=== PATIENT | male | born 1980 | race Caucasian/White ===

== ENCOUNTER → 2020-11-08 01:22 | Outpatient (CLI) | payer BC, SELFPAY ==
[2020-11-08 18:54] LABS: SARS-CoV-2 RNA PCR Negative
== END ==
PROVIDERS: PCP Family Medicine; Visit Provider Internal Medicine Critical Care Medicine
DX: R68.89 Other general symptoms and signs (principal); Z20.822 Contact with and (suspected) exposure to COVID-19
CPT/HCPCS: C9803; U0003; U0005

== ENCOUNTER 2020-11-11 09:07 | Outpatient (CLI) | payer BC, SELFPAY ==
--- NOTE | 2020-11-26 23:03 | WPDSLEEPSTUD ---
Sleep Study Ordering Provider: Kulwant Solorzano MD Interpreting Physician: Samantha Balderas MD Sleep Study Type: Split Polysomnogram Height: 1.96 m Weight: 132.243 kg Body Mass Index: 34.5 Neck Circumference (inches): 18 [place]: 5 Reason for Sleep Study Snoring, waking during the night, fatigue Sleep History [place] Naidu is a 40-year-old man who has fatigue. There is a family history of sleep disorders with both parents using CPAP. He occasionally snores and occasionally it is loud enough that others complain about it. He does not awaken at night with heartburn, belching or coughing. He does not awaken from sleep feeling short of breath. He rarely has trouble sleeping with a cold. He does not wake up gasping for breath at night. He does not have breathing problems at night observed by others. He rarely sweats excessively at night. He does not notice his heart pounding or beating irregularly at night. He rarely falls asleep during the day. Does not fall asleep involuntarily or while driving. He does not have loss of muscle tone was strong emotion. He does not have daytime difficulties due to excessive sleepiness. He does not feel paralyzed on waking or falling asleep. He does not have vivid dreamlike scenes upon awakening or falling asleep. He does not feel afraid to go to sleep. He does not have nightmares. He rarely remembers his dreams. He rarely has racing thoughts. He rarely feels sad or depressed. He occasionally feels anxiety. He rarely has muscular tension. He rarely notices parts of his body jerking. He does not kick at night. He rarely has crawling and aching feelings in his legs. He does not have any kind of leg pain at night. He does not have morning jaw pain. He rarely grinds his teeth during sleep. He does not awaken due to pain during the night. He rarely wakes up feeling stiff the morning. He occasionally wakes up with sore achy muscles. He rarely wakes up with pain in the neck and spine. Normal bedtime depends on his work schedule. He works swing shift. He does not usually take naps. A short nap may be refreshing. He falls asleep quickly waking once at night to urinate and then returns to sleep. He estimates getting 6 to 7-1/2 hours of sleep at night. Habits: Never smoker. Caffeine 2 servings a day. No alcohol. [facility] Past Medical History Medical History Anxiety Dyslipidemia 11/07/2018 Erectile dysfunction Hypertension Hypogonadism in male Surgical History Surgical History History of ligation of vein right leg 1987 Family History Family History Mother Diabetes mellitus Other Depression Hypertension Social History Social History Smoking status: Never smoker Second hand tobacco smoke exposure: No Alcohol intake: current Substance use: never Substance use type: does not use Gender identity (if verbalized by the patient): Male Medications Home Medications Medication Instructions Recorded Confirmed Type lisinopril 20 See Rx Instructions .ROUTE 04/07/20 10/20/20 Rx mg-hydrochlorothiazide 25 mg tablet .COMPLEX #90 tablet syringe with needle 3 mL 22 gauge #20 each 04/25/20 10/20/20 Rx x 1 hydroxyzine HCl 25 mg tablet 25 mg PO TID PRN #60 tablet 09/16/20 09/16/20 Rx testosterone cypionate 200 mg/mL 100 mg IM Q14D 90 Days #3.5 ml 10/27/20 10/27/20 Rx intramuscular oil nebivolol 10 mg tablet 10 mg PO DAILY #90 tablet 11/06/20 Rx sertraline 50 mg tablet 50 mg PO DAILY #90 tablet 11/06/20 Rx amlodipine 10 mg tablet See Rx Instructions .ROUTE 11/13/20 Rx .COMPLEX #90 tablet Sleep Procedure This test was performed using the Storactive multiple channel system including EOG, EEG, submental EMG, EKG, nasal and oral ai
[2020-11-26 23:08] VITALS: BMI 34.5
== END 2020-11-11 09:08 | disposition home or self-care (01) ==
LOC: ANHCSM 09:08
PROVIDERS: PCP Family Medicine; Visit Provider Family Medicine
DX: G47.33 Obstructive sleep apnea (adult) (pediatric) (principal); G47.10 Hypersomnia, unspecified; R29.818 Other symptoms and signs involving the nervous system; R53.83 Other fatigue
CPT/HCPCS: 95811

== ENCOUNTER → 2023-01-27 09:14 | Outpatient (CLI) | payer BC, SELFPAY ==
--- NOTE | ~2023-01-27 | MR_ITS ---
MRI of the right knee Clinical history: Lateral meniscal tear Technique: Coronal proton density and proton density-weighted images, sagittal proton-density and T2 fat-sat images, and axial proton-density fat-saturated images were acquired. Findings: Anterior and posterior cruciate ligaments are intact. Medial collateral ligament and the la teral collateral ligament complex are intact. Popliteus tendon is intact. There is prominent horizontal tear of the anterior horn of the lateral meniscus. No medial meniscal t ear identified. Articular cartilage is relatively well preserved throughout the knee. Bone marrow signals are unremar kable. Extensor mechanism is intact. There is minimal soft tissue swelling in the prepatellar region. No richard nt effusion or Vang's cyst. Impression: Horizontal tear of the anterior horn lateral meniscus. Suspected minimal developing prepatellar bursitis. Reviewed, dictated and finalized at [facility]. Impression: Horizontal tear of the anterior horn lateral meniscus. Suspected minimal developing prepatellar bursitis.
== END ==
PROVIDERS: PCP Family Medicine; Visit Provider Orthopaedic Surgery
DX: S83.281A Other tear of lateral meniscus, current injury, right knee, initial encounter (principal); X58.XXXA Exposure to other specified factors, initial encounter
CPT/HCPCS: 73721

== ENCOUNTER 2023-02-22 07:55 | Outpatient (CLI) | payer BC, SELFPAY ==
--- NOTE | 2023-02-22 08:00 | ECG_ITS ---
Measurements Intervals [place] Rate: 47 P: 5 WA: 153 QRS: -15 QRSD: 91 T: -12 QT: 458 QTc: 407 Interpretive Statements SINUS BRADYCARDIA NO PREVIOUS ECG AVAILABLE FOR COMPARISON Electronically Signed On 02-22-2023 13:31:32 CDT by Roberta Hinkle M.D.
[2023-02-22 08:35] LABS: Anion Gap 6 mmol/L (8-16); Blood Urea Nitrogen 21 mg/dL (9-20); Calcium 8.5 mg/dL (8.4-10.2); Carbon Dioxide 29 mmol/L (22-30); Chloride 103 mmol/L (98-107); Estimated Glomerular Filt Rate > 60; Glucose 97 mg/dL (65-110); Sodium 138 mmol/L (137-145)
== END 2023-02-22 07:56 | disposition home or self-care (01) ==
LOC: ANHSURGERY 08:00
PROVIDERS: Anesthesiology; PCP Family Medicine; Visit Provider Orthopaedic Surgery
DX: E11.9 Type 2 diabetes mellitus without complications (principal); Z01.818 Encounter for other preprocedural examination
CPT/HCPCS: 36415; 80048; 93005

== ENCOUNTER 2023-02-24 01:15 | Day surgery (SDC) | payer BC, SELFPAY ==
[2023-02-17 14:57] VITALS: BMI 34.4
--- NOTE | 2023-02-17 15:00 | PC.NURSE ---
Report to the Outpatient Waiting Room, entrance under the green pavilion located off [facility], at time 8:30 on date 02/24/23. Planned Procedure Time: 10:30. Time changes happen often and if your time is changed the preop area will call you the afternoon before. - You and your visitor will be asked to self-screen and do not enter if you have any COVID symptoms. - A mask is optional within the hospital at this time. Patients may have clear liquids (water, carbonated beverages, clear teas, apple juice) until 3 hours prior to surgery (7:30) with a maximum of 20 ounces. - No food from midnight until time of surgery Take the following medications with a SIP of water the morning of surgery: AMLODIPINE, BYSTOLIC, SERTRALINE DO NOT STOP ANY OF YOUR OTHER PRESCRIPTION MEDICATIONS PRIOR TO SURGERY?EXCEPT THE FOLLOWING Medications to discontinue per physician: VITAMINS/SUPPLEMENTS Date to take last dose: 02/20/23 Please no make-up, nail [place], hairspray, perfume, deodorant, or body powder the day of surgery. No jewelry (including any body piercings) or valuables the day of surgery, leave them at home. Please take a shower or bath the night before, or the morning of, surgery with an antibacterial soap. Wear comfortable, loose fitting clothing. - Jewelry must be removed prior to entering the operating room. Rings and piercings that are not removed may be cut off. - The hospital will not accept responsibility for valuables. - Please leave all valuables, including medications, at home the day of surgery. If you are going home after surgery, a licensed funeral car driver must drive you home. - NO public transportation without another adult if you receive anesthesia. - We recommend that an adult stay with you for 24 hours following discharge. - We also recommend that you do not drive, make important decision, drink alcoholic beverages, or take any drugs that were not prescribed by your health care provider for at least 24 hours after your discharge time. Follow any additional instructions given to you from your surgeon. If you or anyone in your household have experienced Covid symptoms in the past week, please notify your surgeon or the nurse liaison at the phone number below for possible testing. Telephone instructions given to PT - MAMIE ACEVEDO and asked if any additional questions and then verbalized understanding. Patient advised to call surgeon office or pre surgery nurse liaison [phone] if any additional questions.
[2023-02-24] VITALS (7 sets, daily range): BP systolic 144–155; BP diastolic 72–95; PULSE 47–56; RESP 14–21; TEMP 36.3–37.1; O2SAT 95–98
--- NOTE | 2023-02-24 07:01 | WPDHPUPDATE1 ---
History and Physical Update Update Date/Time: 02/24/23 07:01 History and Physical has been reviewed, including an updated exam of the patient. There are NO changes in the patient's condition. Risks, benefits, and alternatives have been discussed and questions answered. Patient agrees to proceed with procedure.
--- NOTE | 2023-02-24 08:29 | WPDANESEPPF ---
Anes - Initial Pre Proc Eval Procedure: Operation Date: 02/24/23 10:30 Proposed Procedures p Right Knee Arthroscopic Lateral Menisectomy - Ga Coppola MD Date/Time: 02/24/23 08:29 Surgeon: Ga Coppola MD Pre Op Diagnosis: lateral meniscus tear right knee Patient Data Age: 42 Gender: M Height: 1.96 m Weight: 138.2 kg Allergies Allergy/AdvReac Type Severity Reaction Status Date / Time Penicillins Allergy Intermediate Hives Verified 02/24/23 08:14 Home Medications Medication Instructions Recorded Confirmed Type syringe with needle 3 mL 22 gauge #20 ea 04/25/20 02/02/23 Rx x 1 (Syringe) blood-glucose meter (OneTouch #1 ea 11/17/21 02/02/23 Rx Ultra2 Meter kit) blood sugar diagnostic (OneTouch #100 ea 12/14/21 02/02/23 Rx Ultra Test strips) lancets (OneTouch UltraSoft #100 ea 12/14/21 02/02/23 Rx Lancets) syringe with needle, safety 3 mL #50 ea 12/16/21 02/02/23 Rx 22 gauge x 1 1/2 (BD Eclipse Luer-Mark Anthony) cholecalciferol (vitamin D3) 25 25 mcg PO DAILY 05/20/22 02/24/23 History mcg (1,000 unit) tablet testosterone cypionate 200 mg/mL 200 mg IM Q14D 90 days #6 mL 06/17/22 02/17/23 Rx intramuscular oil hydrochlorothiazide 25 mg tablet 25 mg PO DAILY #90 tabs 10/11/22 02/24/23 Rx lisinopril 40 mg tablet 40 mg PO DAILY #90 tabs 10/11/22 02/24/23 Rx nebivolol 10 mg tablet (Bystolic) 10 mg PO DAILY #90 tabs 10/11/22 02/24/23 Rx sertraline 50 mg tablet (Zoloft) 50 mg PO DAILY #90 tabs 10/11/22 02/24/23 Rx amlodipine 10 mg tablet 10 mg PO DAILY #90 tabs 10/25/22 02/24/23 Rx semaglutide 1 mg/dose (4 mg/3 mL) 1 mg subcut WEEKLY 12/01/22 02/17/23 History subcutaneous pen injector (Ozempic) Patient hx anesthesia problems: none Family hx anesthesia problems: none Results Review: All pre-operative results and documents have been reviewed as part of the pre-operative evaluation. [facility] Past Medical History Medical History Anxiety BMI 34.0-34.9,adult Dyslipidemia 11/07/2018 Erectile dysfunction Gynecomastia, male Hypertension Hypogonadism in male Metabolic syndrome Obstructive sleep apnea Primary hypogonadism in male Type 2 diabetes mellitus Surgical History Surgical History History of ligation of vein right leg 1987 Family History Family History Mother Diabetes mellitus Other Depression Hypertension Social History Social History Smoking status: Never smoker Second hand tobacco smoke exposure: No Alcohol intake: current Alcohol use details: RARE Substance use: never Substance use type: does not use Lack of Transportation: No Lack of Food: Never True Current Housing: I Have Housing Concerned About Future Housing: No Difficulty Paying Gas/Electric Bills: No Difficulty Paying for Meds: No Currently Unemployed: No Education: Trade/Vocational Certificate Difficulty w/ Childcare or Family Care: No Living arrangements: with family Occupation/Education: occupation Gender identity (if verbalized by the patient): Male Sexual Orientation (if Verbalized by the Patient): Straight or Heterosexual Spiritual care concerns: No Anes - Eval Final PreProcedure Day of Procedure 02/24/23 08:29 Patient weight: obese Heart: regular rate and rhythm Lungs: clear to auscultation Airway: Mallampati scale class II Neurological: alert and oriented Last oral intake: >/= 8 hours ASA classification: III Emergent: no Anesthetic plan: proceed Anesthesia type and monitoring: general LMA and standard monitoring Results Review: All pre-operative results and documents have been reviewed as part of the pre-operative evaluation. Informed Consent: The patient's anesthetic plan and its attendant risks
[2023-02-24] MEDS: ACETAMINOPHEN 500 MG TABLET 1000 MG PO (08:30)
[2023-02-24] MEDS: KETOROLAC 15 MG/ML VIAL (*BKC) IV PUSH (08:40)
[2023-02-24 08:44] LABS: Glucose Point of Care 103 mg/dl (65-105)
[2023-02-24] MEDS: LACTATED RINGERS 1,000 ML 30 ML IV CONT (08:44)
[2023-02-24] MEDS: ceFAZolin 3 GM/D5W 100 ML 100 ML IVPB (10:20)
[2023-02-24 11:44] LABS: Glucose Point of Care 115 mg/dl (65-105)
--- NOTE | 2023-02-24 12:02 | SUR.PHASEI ---
1202: Simple mask removed.
--- NOTE | 2023-02-24 12:06 | W.PM.PROC2 ---
Procedure Note - Detailed Date of Procedure 02/24/23 Pre-op Diagnosis lateral meniscus tear right knee Post-op Diagnosis Same Procedure Performed Arthroscopic partial lateral meniscectomy, right knee. Surgeon Ga Coppola MD Anesthesia General Findings Extensive meniscus tear debrided including lateral and anterior aspects. Medial femur chondromalacia grade 0, medial tibia grade 0. Lateral femur chondromalacia grade 0, lateral tibia grade 1. Patellar grade 0, trochlea grade 0. Description of Procedure The patient was identified and the surgical site confirmed and signed in the preoperative holding area. Antibiotics were started per protocol. He was brought to the operative room and transferred to the OR table. A general anesthetic was administered. Supine position with the operative lower extremity position in the leg [place] after placement of a well padded tourniquet. The leg support was lowered and the contralateral limb was supported with a soft bolster. The knee was prepped and draped in the usual sterile fashion. A time-out was performed. The portal sites were marked and infiltrated with 0.5% Marcaine 20 mL. The limb was exsanguinated and the tourniquet inflated to 300 mL Hg. Standard inferolateral and inferomedial portals were established. Inflow was obtained with the saline pump. The camera was introduced. Diagnostic inspection of the joint was accomplished. The meniscus was debrided with the arthroscopic shaver and punches until stable. The radiofrequency probe was also used for further d?bridement. The arthroscopic instruments were removed. The tourniquet released and wounds closed with subcutaneous 4-0 Monocryl absorbable suture. Steri strips and a sterile dressing were applied. A light elastic wrap was placed. The patient was extubated and brought to the recovery room in stable condition. Estimated Blood Loss -20.0 Drains No Complications No immediate complications Condition Stable Disposition PACU [facility] Billing Surgery - Charge Forward: Surgery Billing
[2023-02-24] MEDS: ONDANSETRON INJ 4 MG/2 ML VIAL IV PUSH (12:08)
== END 2023-02-24 13:04 | disposition home or self-care (01) ==
PROVIDERS: PCP Family Medicine; Visit Provider Orthopaedic Surgery
PROC: (CPT 29870; principal; 2023-02-24 10:30)
DX: S83.281A Other tear of lateral meniscus, current injury, right knee, initial encounter (principal); X50.0XXA Overexertion from strenuous movement or load, initial encounter; I10 Essential (primary) hypertension; E11.9 Type 2 diabetes mellitus without complications; G47.33 Obstructive sleep apnea (adult) (pediatric); E78.5 Hyperlipidemia, unspecified; F41.9 Anxiety disorder, unspecified; E66.9 Obesity, unspecified; Z68.36 Body mass index [BMI] 36.0-36.9, adult; Z79.899 Other long term (current) drug therapy
CPT/HCPCS: 29881; 82948; A9270; J0690; J1100; J1170; J1885; J2250; J2405; J2704; J3010; J7120

== ENCOUNTER 2023-02-28 07:40 | Outpatient (RCR) | payer BC, SELFPAY ==
--- NOTE | 2023-02-28 08:50 | OPREHPOC ---
Outpatient Therapy Plan of Care This is a Multidisciplinary Plan of Care that may contain components documented by all disciplines (PT, OT, and ST.) PT Problem 1 PT Problem #1 Knowledge Deficit PT Goal 1 Goal Patient to demonstrate independence with HEP Target Visit 12 PT Problem 2 PT Problem #2 Pain PT Goal 1 Goal Patient to report highest pain at 2/10 to return to house hold tasks at PLOF Target Visit 12 PT Problem 3 PT Problem #3 Impaired Range of Motion PT Goal 1 Goal Patient to demonstrate 0-120 deg of R knee ROM to return to stair navigation at PLOF Target Visit 12 PT Problem 4 PT Problem #4 Impaired Strength PT Goal 1 Goal Patient to demonstrate 5/5 strength of R knee to return to house hold tasks at PLOF Target Visit 12 PT Problem 5 PT Problem #5 Impaired Functional Mobil PT Goal 1 Goal 1. Patient to report ability to stand for >1 hour without increase in pain 2. Patient to report ability to ambulate >30 minutes without increase in pain 3. Patient to improve LEFS by 20% Target Visit 12
--- NOTE | 2023-02-28 08:50 | PTOPEVAL1 ---
Assessment and note entered by Antonia Stroud DPT Evaluation Information Assessment Status Evaluation Diagnosis R knee pain Onset 02/24/23 Subjective Information Patient reports he had a lateral menisectomy on the R knee on 02/24/23. He reports about 4 months ago he was walking his dog when the dog pulled him off the sidewalk and he felt a pop in his knee. He reports difficulty with walking, standing and squatting. 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 Patient reports he returns to MD 03/09/23 Reported Pain Level Pain Score 3: Self Report Assessment PT Clinical Summary Patient is a 42 year old male who presents to PT with R knee pain s/p lateral menisectomy. He demonstrates decreased R knee ROM, decreased R knee strength and impaired gait limiting his ability to stand for house hold tasks, ambulate long distances and squat for return to work. He would benefit from skilled PT to address impairments and return to PLOF. Plan of Care Interventions Electrical Stimulation,Gait Training,Hot Pack/Cold Pack,Manual Therapy,Neuro Re-education,Patient/ Caregiver Educati,Therapeutic Activities, Therapeutic Exercise,Self-Care/Home Management PT Services Indicated Yes Treatment Frequency and 2x weekly for 12 visits Duration These treatments will address the objective and functional deficits as defined above. The patient will be advanced safely and appropriately in order for the patient to progress towards his/her prior level of function. Additional exercises will be introduced and as well as a comprehensive home exercise program upon discharge, if needed, ?to ensure carryover of functional gains achieved in the clinic. This treatment plan has been reviewed and agreement upon by the patient.
== END 2023-04-05 23:59 | disposition home or self-care (01) ==
LOC: CHSPT 07:40
PROVIDERS: Visit Provider Orthopaedic Surgery
DX: Z48.89 Encounter for other specified surgical aftercare (principal)
CPT/HCPCS: 97016; 97110; 97112; 97140; 97161; 97530

== ENCOUNTER 2023-05-06 08:31 | Emergency (ER) | payer BC, SELFPAY ==
--- NOTE | ~2023-05-06 | CT_ITS ---
EXAMINATION: CT abdomen pelvis w con DATE: 05/06/2023 09:29 INDICATION: Right lower quadrant abdominal pain. Emesis. TECHNIQUE: Computed tomography (CT) of the abdomen and pelvis was performed with 100 mL Omnipaque 350 intravenous contrast. Automated exposure control and iterative reconstruction technique were employe d. The dose-length product was 1668.27 mGy-cm. COMPARISON: None. FINDINGS: The visualized portions of the lung bases are clear without pneumonia or pleural effusion. The heart size is normal. No pericardial effusion. The liver, gallbladder, spleen, pancreas, and adre nal glands are normal. There is mild right hydronephrosis. There is a 4 mm stone in proximal right ur eter. Left kidney is normal. There is an umbilical hernia containing fat. There is prominent fat in t he inguinal canals that may be hernias. The prostate is mildly enlarged. There are no dilated loops o f bowel. The appendix is normal. There is mild lumbar spondylosis. IMPRESSION: 1. 4 mm stone in proximal right ureter with mild right hydronephrosis. 2. Umbilical hernia containing fat. Reviewed, dictated and finalized at location A.
--- NOTE | ~2023-05-06 | XR_ITS ---
EXAMINATION: XR abdomen/kub 1V INDICATION: Right proximal ureteral stone TECHNIQUE: Supine views of the abdomen were obtained on 2 radiographs. COMPARISON: CT from today FINDINGS: There is moderate right hydronephrosis with abrupt cut of the proximal ureter at the site o f the proximal ureteral stone seen on CT. Contrast from earlier CT is present in the collecting syste ms, left ureter, and bladder. The bowel gas pattern is normal. IMPRESSION: 1. Moderate right hydronephrosis with abrupt cut off at the right proximal ureteral stone more readil y seen on the comparison CT. Reviewed, dictated and finalized at location B. IMPRESSION: 1. Moderate right hydronephrosis with abrupt cut off at the right proximal uret eral stone more readily seen on the comparison CT.
[2023-05-06 08:35] VITALS: BP 168/107; PULSE 59; RESP 18; O2SAT 100
[2023-05-06 08:59] LABS: Basophils Percent Auto 0.2 % (0.2-1.2); Eosinophils Absolute Auto 0.1 K/mm3 (0-0.3); Eosinophils Percent Auto 2.1 % (0-4.4); Hematocrit 45.3 % (42.0-52.0); Hemoglobin 14.9 g/dL (14.0-18.0); Immature Granulocyte Absolute 0.02 K/mm3 (0.00-0.031); Immature Granulocyte Percent A 0.3 % (0-0.5); Lymphocytes Percent Auto 22.5 % (18.3-44.2); Mean Corpuscular HGB Conc 32.9 g/dl (32-36); Mean Corpuscular Hemoglobin 30.8 pg (26-34); Mean Corpuscular Volume 93.6 fl (80-100); Monocytes Absolute Auto 0.7 K/mm3 (0.1-0.6); Monocytes Percent Auto 10.9 % (2.6-8.5); Platelet Count Result 216 k/mm3 (150-375); Red Blood Count 4.84 M/mm3 (4.6-6.20); Red Cell Distribution Width 13.4 % (11.5-14.5); White Blood Count 6.2 K/mm3 (4.5-10.0)
[2023-05-06 09:09] LABS: Alanine Aminotransferase 32 U/L (6-50); Albumin Level 4.3 g/dL (3.5-5.1); Alkaline Phosphatase 64 U/L (38-126); Anion Gap 7 mmol/L (8-16); Aspartate Amino Transferase 24 U/L (17-59); Bilirubin,Total 0.6 mg/dL (0.2-1.3); Blood Urea Nitrogen 13 mg/dL (9-20); Calcium 8.5 mg/dL (8.4-10.2); Carbon Dioxide 28 mmol/L (22-30); Chloride 104 mmol/L (98-107); Estimated CRCL calculation 131 ml/min; Estimated Glomerular Filt Rate > 60; Glucose 137 mg/dL (65-110); Lipase 109 U/L (23-300); Sodium 139 mmol/L (137-145)
[2023-05-06] MEDS: SODIUM CHLORIDE 0.9% IV 1,000 ML 999 ML IV CONT (09:11)
[2023-05-06] MEDS: ONDANSETRON INJ 4 MG/2 ML VIAL IV PUSH (09:12)
[2023-05-06] MEDS: HYDROmorphone HCL INJ (*CRX) 1 MG/ML SYR IV PUSH (09:12)
[2023-05-06 09:15] LABS: Bacteria Urine None Seen /hpf; Calcium Oxalate Crystals Urine Present /hpf; RBC Urine >100 /hpf (0-2); Squamous Epithelial Cell Urine Occasional /hpf (Few); WBC Urine 0-5 /hpf
[2023-05-06 09:17] LABS: Appearance Urine Turbid (Clear); Bilirubin Urine 1+ (Negative); Blood Urine 3+ (Negative); Color Urine Brown (Yellow); Glucose Urine UA Negative (Negative); Ketones Urine Negative (Negative); Leukocyte Esterase Ur 1+ LEU/UL (Negative); Nitrate Urine Negative (Negative); Protein Urine 2+ mg/dL (Negative); Specific Grav Ur 1.026 (1.001-1.035); Urobilinogen Urine 0.2 mg/dL (<2.0)
[2023-05-06 09:18] LABS: Add Urine Microscopic? YES
--- NOTE | 2023-05-06 09:27 | ED.ABDPAIN ---
HPI - Abdominal Pain General Chief Complaint: Abdominal Pain Stated Complaint: Right sided abdominal pain that began this AM Time Seen by Provider: 05/06/23 08:39 Source: patient and RN notes reviewed Mode of arrival: ambulatory Limitations: no limitations History of Present Illness HPI narrative: This is a 42 year old male who presents for evaluation of right lower abdominal pain. He states his pain started suddenly this morning. Pain is severe and associated with nausea and vomiting. He denies fever or chills. Denies history of kidney stones. Pain 06/07. Related Data Home Medications Medication Instructions Recorded Confirmed cholecalciferol (vitamin D3) 25 25 mcg PO DAILY 05/20/22 04/07/23 mcg (1,000 unit) tablet Allergies Allergy/AdvReac Type Severity Reaction Status Date / Time Penicillins Allergy Intermediate Hives Verified 05/06/23 08:37 Review of Systems Constitutional: Constitutional: Denies weakness Cardiovascular: Cardiovascular: Denies syncope, Denies rapid heart rate, Denies irregular heart rhythm, Denies leg edema and Denies dyspnea Respiratory: Respiratory: Denies chest congestion, Denies hemoptysis, Denies excessive phlegm production and Denies dyspnea Gastrointestinal: Gastrointestinal: Reports abdominal pain, Denies hematochezia, Denies diarrhea, Reports nausea and Denies vomiting Genitourinary: Genitourinary: Denies hematuria, Denies dysuria, Denies penile discharge and Denies testicular pain Musculoskeletal: Musculoskeletal: Reports back pain, Denies joint swelling, Denies loss of height and Denies muscle weakness Neurologic: Denies syncope, Denies focal weakness and Denies weakness PMFSH Past Medical History Medical History Anxiety BMI 34.0-34.9,adult Dyslipidemia 11/07/2018 Erectile dysfunction Gynecomastia, male Hypertension Hypogonadism in male Metabolic syndrome Obstructive sleep apnea Primary hypogonadism in male Type 2 diabetes mellitus Surgical History Surgical History H/O knee surgery 02/2023, right knee H/O meniscectomy of right knee (~02/24/23) Lateral History of ligation of vein right leg 1987 Family History Family History Mother Diabetes mellitus Other Depression Hypertension Social History Social History Smoking status: Never smoker Second hand tobacco smoke exposure: No Alcohol intake: current Alcohol use details: RARE Substance use: never Substance use type: does not use Lack of Transportation: No Lack of Food: Never True Current Housing: I Have Housing Concerned About Future Housing: No Difficulty Paying Gas/Electric Bills: No Difficulty Paying for Meds: No Currently Unemployed: No Education: Trade/Vocational Certificate Difficulty w/ Childcare or Family Care: No Living arrangements: with family Occupation/Education: occupation Gender identity (if verbalized by the patient): Male Sexual Orientation (if Verbalized by the Patient): Straight or Heterosexual Spiritual care concerns: No Exam Const: General: alert and diaphoretic Orientation/consciousness: patient oriented x3 Limitations: no limitations Other: patient actively vomiting HENMT: Head: normal to inspection Eyes: EOM: EOMs intact bilaterally Resp: Effort & Inspection: normal respiratory effort Auscultation: clear to auscultation bilaterally Cardio: Rate: regular rate Rhythm: regular rhythm Heart sounds: no murmurs GI: GI Palp: Yes Soft to palpation, Yes Tenderness to palpation present (GI) (RLQ), No Guarding due to palpation present (GI) and No Rigid due to palpation Auscultation: normal bowel sounds : General: Yes no CVA tenderness Back/Spine/Pelvis: Back: no CVA tenderness Skin: Gen
[2023-05-06] MEDS: HYDROmorphone HCL INJ (*CRX) 1 MG/ML SYR 0.5 MG IV PUSH ×2 (10:24→11:14)
[2023-05-06 10:25] VITALS: BP 172/92; PULSE 53; RESP 18; O2SAT 99
[2023-05-06] MEDS: TAMSULOSIN HCL 0.4 MG CAPSULE PO (10:25)
[2023-05-06 12:45] VITALS: BP 156/85; PULSE 84; RESP 18; O2SAT 98
[2023-05-06] MEDS: KETOROLAC 30 MG/ML VIAL (*BKC) IV PUSH (13:11)
[2023-05-06 14:18] VITALS: BP 129/78; PULSE 57; RESP 18; O2SAT 100
[2023-05-06 15:02] VITALS: BP 127/72; PULSE 54; RESP 16; O2SAT 98
== END 2023-05-06 15:09 | disposition home or self-care (01) ==
PROVIDERS: Emergency Provider General Practice; PCP Family Medicine
DX: N20.1 Calculus of ureter (principal); E78.5 Hyperlipidemia, unspecified; I10 Essential (primary) hypertension; E11.9 Type 2 diabetes mellitus without complications
CPT/HCPCS: 36415; 74018; 74177; 80053; 81001; 83690; 85025; 96361; 96374; 96375; 96376; 99284; A9270; J1170; J1885; J2405; J7030; Q9967

== ENCOUNTER 2023-05-20 13:48 | Outpatient (CLI) | payer BC, SELFPAY ==
--- NOTE | ~2023-05-20 | XR_ITS ---
EXAMINATION: XR abdomen/kub 1V INDICATION: Right ureteral calculus TECHNIQUE: Supine views of the abdomen were obtained on 2 radiographs. COMPARISON: 05/06/[address] from today FINDINGS: The 4 mm stone of the distal right ureter (as seen on today's CT examination) is not defini tely identified and may be obscured by rectal stool. No additional urolithiasis is identified. The bill wel gas pattern is normal.. IMPRESSION: 1. Known 4 mm right distal ureteral stone not identified. Reviewed, dictated and finalized at location B.
--- NOTE | ~2023-05-20 | CT_ITS ---
EXAMINATION: CT abdomen pelvis wo con DATE: 05/20/2023 14:05 INDICATION: Hematuria, known kidney stone TECHNIQUE: Computed tomography (CT) of the abdomen and pelvis was performed without intravenous contr ast. The dose-length product (DLP) was 1042.29 mGy-cm. Automated exposure control and iterative recon struction technique were employed. COMPARISON: 05/06/2023 FINDINGS: The lung bases are clear. The heart size is normal. The liver, spleen, pancreas, gallbladde r, and adrenal glands are normal. The previously described 4 mm stone of the proximal right ureter holloway s migrated to the distal ureter just above the ureterovesicular junction. Hydronephrosis has resolved . The left kidney is unremarkable. No pathologically enlarged abdominal or pelvic lymph nodes are bahman ntified. No free intraperitoneal gas or evidence of bowel obstruction. There is an umbilical hernia c ontaining fat. The appendix is normal. There is mild lumbar spondylosis. IMPRESSION: 1. Interval migration of the previously described 4 mm right ureteral stone to the distal ureter just above the ureterovesicular junction. Reviewed, dictated and finalized at location B.
== END 2023-05-20 13:49 | disposition home or self-care (01) ==
LOC: ANHIMG 13:51
PROVIDERS: PCP Family Medicine; Visit Provider Nurse Practitioner Adult Health
DX: N20.1 Calculus of ureter (principal)
CPT/HCPCS: 74018; 74176

== ENCOUNTER 2023-05-26 01:46 | Day surgery (SDC) | payer BC, SELFPAY ==
[2023-05-25 15:50] VITALS: BMI 35.0
--- NOTE | 2023-05-25 15:54 | PC.NURSE ---
Report to the Outpatient Waiting Room, entrance under the green pavilion located off [facility], at time 1200 on date 05/26/23. Planned Procedure Time: 1400. Time changes happen often and if your time is changed the preop area will call you the afternoon before. - You and your visitor will be asked to self-screen and do not enter if you have any COVID symptoms. - A mask is optional within the hospital at this time. Patients may have clear liquids (water, carbonated beverages, clear teas, apple juice) until 3 hours prior to surgery with a maximum of 20 ounces. - No food from midnight until time of surgery Take the following medications with a SIP of water the morning of surgery: AMLODIPINE, BYSTOLIC, PAIN PILL IF NEEDED DO NOT STOP ANY OF YOUR OTHER PRESCRIPTION MEDICATIONS PRIOR TO SURGERY ?EXCEPT THE FOLLOWING Medications to discontinue per physician: N/A Date to take last dose: N/A Please no make-up, nail spanish, hairspray, perfume, deodorant, or body powder the day of surgery. No jewelry (including any body piercings) or valuables the day of surgery, leave them at home. Please take a shower or bath the night before, or the morning of, surgery with an antibacterial soap. Wear comfortable, loose fitting clothing. - Jewelry must be removed prior to entering the operating room. Rings and piercings that are not removed may be cut off. - The hospital will not accept responsibility for valuables. - Please leave all valuables, including medications, at home the day of surgery. If you are going home after surgery, a licensed driver operator must drive you home. - NO public transportation without another adult if you receive anesthesia. - We recommend that an adult stay with you for 24 hours following discharge. - We also recommend that you do not drive, make important decision, drink alcoholic beverages, or take any drugs that were not prescribed by your health care provider for at least 24 hours after your discharge time. Follow any additional instructions given to you from your surgeon. If you or anyone in your household have experienced Covid symptoms in the past week, please notify your surgeon or the nurse liaison at the phone number below for possible testing. Telephone instructions given to PT - MAMIE ACEVEDO and asked if any additional questions and then verbalized understanding. Patient advised to call surgeon office or pre surgery nurse liaison [phone] if any additional questions.
[2023-05-26] VITALS (7 sets, daily range): BP systolic 147–174; BP diastolic 72–94; PULSE 48–55; RESP 12–18; TEMP 36.5–36.6; O2SAT 96–100; BMI 35.6
--- NOTE | ~2023-05-26 | XR_ITS ---
XR fluoroscopy no charge Procedure: Right stone extraction TECHNIQUE: Fluoroscopy used during Right stone extraction performed by [Ace Armstrong MD] o n 05/26/2023. 5 seconds of fluoroscopy with 1 images captured. FINDINGS: Correlate with procedure note. IMPRESSION: Fluoroscopy used during right stone extraction. Reviewed, dictated and finalized at location L.
[2023-05-26] MEDS: LACTATED RINGERS 1,000 ML 30 ML IV CONT (12:15)
--- NOTE | 2023-05-26 12:15 | WPDANESEPPF ---
Anes - Initial Pre Proc Eval Procedure: Operation Date: 05/26/23 14:00 Proposed Procedures p Cystoscopy, Right Ureteroscopy, Right Retrograde Pyelogram, Right Stone Extraction, Possible Right Stent Placement, Possible Holmium Laser - Aec Armstrong MD Date/Time: 05/26/23 12:15 Surgeon: Ace Armstrong MD Pre Op Diagnosis: ureteral stone Patient Data Age: 42 Gender: M Height: 1.96 m Weight: 136.3 kg Allergies Allergy/AdvReac Type Severity Reaction Status Date / Time Penicillins Allergy Intermediate Hives Verified 05/26/23 11:57 Home Medications Medication Instructions Recorded Confirmed Type syringe with needle 3 mL 22 gauge #20 ea 04/25/20 04/07/23 Rx x 1 (Syringe) blood-glucose meter (OneTouch #1 ea 11/17/21 04/07/23 Rx Ultra2 Meter kit) blood sugar diagnostic (OneTouch #100 ea 12/14/21 04/07/23 Rx Ultra Test strips) lancets (SoothEaseTouch UltraSoft #100 ea 12/14/21 04/07/23 Rx Lancets) cholecalciferol (vitamin D3) 1,250 1,250 mcg PO WEEKLY #14 tabs 03/22/23 05/25/23 Rx mcg (50,000 unit) tablet hydrochlorothiazide 50 mg tablet 50 mg PO DAILY 90 days #90 tabs 03/22/23 05/25/23 Rx rosuvastatin 5 mg tablet 5 mg PO DAILY #90 tabs 03/22/23 05/25/23 Rx semaglutide 2 mg/dose (8 mg/3 mL) 2 mg (0.75 mL) subcut WEEKLY #9 mL 03/22/23 05/25/23 Rx subcutaneous pen injector syringe with needle, safety 3 mL #50 ea 03/22/23 04/07/23 Rx 22 gauge x 1 1/2 (BD Eclipse Luer-Mark Anthony) testosterone cypionate 200 mg/mL 200 mg IM Q14D 90 days #6 mL 03/22/23 05/25/23 Rx intramuscular oil lisinopril 40 mg tablet 40 mg PO DAILY #90 tabs 04/11/23 05/25/23 Rx nebivolol 10 mg tablet (Bystolic) 10 mg PO DAILY #90 tabs 04/11/23 05/25/23 Rx amlodipine 10 mg tablet 10 mg PO DAILY #90 tabs 04/21/23 05/25/23 Rx hydrocodone 5 mg-acetaminophen 325 1 tablet PO Q6H PRN pain #14 tabs 05/06/23 05/25/23 Rx mg tablet ondansetron 4 mg disintegrating 4 mg PO Q6H PRN nausea and 05/06/23 05/25/23 Rx tablet vomiting #14 tabs Patient hx anesthesia problems: none Family hx anesthesia problems: none Results Review: All pre-operative results and documents have been reviewed as part of the pre-operative evaluation. [facility] Past Medical History Medical History Anxiety BMI 34.0-34.9,adult Dyslipidemia 11/07/2018 Erectile dysfunction Gynecomastia, male Hypertension Hypogonadism in male Metabolic syndrome Obstructive sleep apnea Primary hypogonadism in male Type 2 diabetes mellitus Surgical History Surgical History H/O knee surgery 02/2023, right knee H/O meniscectomy of right knee (~02/24/23) Lateral History of ligation of vein right leg 1987 Family History Family History Mother Diabetes mellitus Other Depression Hypertension Social History Social History Smoking status: Never smoker Second hand tobacco smoke exposure: No Alcohol intake: current Alcohol use details: RARE Substance use: never Substance use type: does not use Lack of Transportation: No Lack of Food: Never True Current Housing: I Have Housing Concerned About Future Housing: No Difficulty Paying Gas/Electric Bills: No Difficulty Paying for Meds: No Currently Unemployed: No Education: Trade/Vocational Certificate Difficulty w/ Childcare or Family Care: No Living arrangements: with family Occupation/Education: occupation Gender identity (if verbalized by the patient): Male Sexual Orientation (if Verbalized by the Patient): Straight or Heterosexual Spiritual care concerns: No Anes - Eval Final PreProcedure Day of Procedure 05/26/23 12:15 Patient weight: obese Heart: regular rate and rhythm Lungs: clear to auscultation Airway: Mallampati scale class II Neurological:
[2023-05-26 12:24] LABS: Glucose Point of Care 86 mg/dl (65-105)
--- NOTE | 2023-05-26 12:59 | WPDHPUPDATE1 ---
History and Physical Update Update Date/Time: 05/26/23 12:59 History and Physical has been reviewed, including an updated exam of the patient. There are NO changes in the patient's condition. Risks, benefits, and alternatives have been discussed and questions answered. Patient agrees to proceed with procedure.
[2023-05-26] MEDS: ceFAZolin 3 GM/D5W 100 ML 100 ML IVPB (13:05)
[2023-05-26] MEDS: KETOROLAC 15 MG/ML VIAL (*BKC) IV PUSH (13:22)
--- NOTE | 2023-05-26 13:25 | P.OP_ITS ---
Procedure Note - Detailed Date of Procedure 05/26/23 Pre-op Diagnosis Right ureteral stone Post-op Diagnosis Same Procedure Performed Cystoscopy, right ureteroscopy with stone extraction Surgeon Ace Armstrong MD Anesthesia General Description of Procedure The patient was brought to the operative suite where he is prepped and draped in a routine sterile fashion while in the dorsal lithotomy position after the uneventful induction of a general LMA anesthetic. A 19F rigid cystoscope was placed in the bladder. There are no urethral strictures. His prostatic urethra measures, approximately, 1.0cm with no median lobe enlargement. The bladder mucosa was endoscopically normal without hyperemia or neoplasm. There was a single, orthotopic ureteral orifice bilaterally. A 0.035 glidewire was advanced into the right renal pelvis under fluoroscopy. The distal ureter was dilated with an 8F/10F ureteral dilator. Ureteroscopy was undertaken with a short, tapered, semi-rigid ureteroscope and the stone was extracted with ease using a 1.9F Escape disposable stone basket. Due to the ease of this manipu lation I opted not to place a ureteral stent. The patient's bladder was emptied and was taken to the recovery room having tolerated this procedure well. Drains No Pathology Yes
--- NOTE | 2023-05-26 13:39 | PM.HPGS ---
History of Present Illness History of Present Illness Consent: Risks, benefits, and alternatives have been discussed and questions answered. Patient agrees to proceed with procedure. Chief complaint: ureteral stone Narrative: Winston Naidu is a 42 year old male without prior significant urological history and without history of urolithiasis. She presents to the ED with onset of right flank pain followed by nausea and vomiting. She denies fevers chills or gross hematuria. Imaging demonstrates a 5-6 mm right proximal ureteral stone causing moderate obstruction. Her urine suggest possible infection although she is afebrile and has no significant leukocytosis. After discussion of options we have elected for cystoscopy with right ureteral stent placement today followed by definitive intervention ( likely right ESWL) next week. She is aware the risk including, not limited to, bacteremia, need for additional procedures hematuria and stent irritation PMFSH Past Medical History Medical History Anxiety BMI 34.0-34.9,adult Dyslipidemia 11/07/2018 Erectile dysfunction Gynecomastia, male Hypertension Hypogonadism in male Metabolic syndrome Obstructive sleep apnea Primary hypogonadism in male Type 2 diabetes mellitus Surgical History Surgical History H/O knee surgery 02/2023, right knee H/O meniscectomy of right knee (~02/24/23) Lateral History of ligation of vein right leg 1987 Family History Family History Mother Diabetes mellitus Other Depression Hypertension Social History Social History Smoking status: Never smoker Second hand tobacco smoke exposure: No Alcohol intake: current Alcohol use details: RARE Substance use: never Substance use type: does not use Lack of Transportation: No Lack of Food: Never True Current Housing: I Have Housing Concerned About Future Housing: No Difficulty Paying Gas/Electric Bills: No Difficulty Paying for Meds: No Currently Unemployed: No Education: Trade/Vocational Certificate Difficulty w/ Childcare or Family Care: No Living arrangements: with family Occupation/Education: occupation Gender identity (if verbalized by the patient): Male Sexual Orientation (if Verbalized by the Patient): Straight or Heterosexual Spiritual care concerns: No Meds Home Medications and Allergies Home Medications Medication Instructions Recorded Confirmed Type syringe with needle 3 mL 22 gauge #20 ea 04/25/20 04/07/23 Rx x 1 (Syringe) blood-glucose meter (OneTouch #1 ea 11/17/21 04/07/23 Rx Ultra2 Meter kit) blood sugar diagnostic (OneTouch #100 ea 12/14/21 04/07/23 Rx Ultra Test strips) lancets (OneTouch UltraSoft #100 ea 12/14/21 04/07/23 Rx Lancets) cholecalciferol (vitamin D3) 1,250 1,250 mcg PO WEEKLY #14 tabs 03/22/23 05/25/23 Rx mcg (50,000 unit) tablet hydrochlorothiazide 50 mg tablet 50 mg PO DAILY 90 days #90 tabs 03/22/23 05/25/23 Rx rosuvastatin 5 mg tablet 5 mg PO DAILY #90 tabs 03/22/23 05/25/23 Rx semaglutide 2 mg/dose (8 mg/3 mL) 2 mg (0.75 mL) subcut WEEKLY #9 mL 03/22/23 05/25/23 Rx subcutaneous pen injector syringe with needle, safety 3 mL #50 ea 03/22/23 04/07/23 Rx 22 gauge x 1 1/2 (BD Eclipse Luer-Mark Anthony) testosterone cypionate 200 mg/mL 200 mg IM Q14D 90 days #6 mL 03/22/23 05/25/23 Rx intramuscular oil lisinopril 40 mg tablet 40 mg PO DAILY #90 tabs 04/11/23 05/25/23 Rx nebivolol 10 mg tablet (Bystolic) 10 mg PO DAILY #90 tabs 04/11/23 05/25/23 Rx amlodipine 10 mg tablet 10 mg PO DAILY #90 tabs 04/21/23 05/25/23 Rx hydrocodone 5 mg-acetaminophen 325 1 tablet PO Q6H PRN pain #14 tabs 05/06/23 05/25/23 Rx mg tablet ondansetron 4 mg disintegrating 4 mg PO Q6H PRN nausea and 05/06/23
--- NOTE | 2023-05-26 15:14 | SUR.PHASEII ---
VITALS AND ASSESSMENTS CHARTED AT 1505 ARE FOR 1435
== END 2023-05-26 15:05 | disposition home or self-care (01) ==
PROVIDERS: PCP Family Medicine; Visit Provider Urology
PROC: (CPT 52352; principal; 2023-05-26 14:00)
DX: N20.1 Calculus of ureter (principal); E78.5 Hyperlipidemia, unspecified; E11.9 Type 2 diabetes mellitus without complications; I10 Essential (primary) hypertension; G47.33 Obstructive sleep apnea (adult) (pediatric); E66.9 Obesity, unspecified; Z68.35 Body mass index [BMI] 35.0-35.9, adult; Z79.85 Long-term (current) use of injectable non-insulin antidiabetic drugs; Z79.891 Long term (current) use of opiate analgesic
CPT/HCPCS: 52352; 82365; 82948; 88300; 99199; C1769; J0690; J1885; J2250; J2405; J2704; J3010; J7120

== ENCOUNTER 2023-07-12 08:57 | Outpatient (CLI) | payer BC, SELFPAY ==
--- NOTE | ~2023-07-12 | XR_ITS ---
Supine and upright views of the abdomen Clinical history: Ureteral calculi COMPARISON: 05/20/2023 Findings: Bowel gas pattern is nonspecific. No evidence for obstruction or free air. No abnormal mass lesion or calcification is seen. Osseous structures are intact. Impression: No significant abnormality is seen. Reviewed, dictated and finalized at [facility]. MAN Impression: No significant abnormality is seen.
== END 2023-07-12 08:58 | disposition home or self-care (01) ==
PROVIDERS: PCP Family Medicine; Visit Provider Urology
DX: N20.1 Calculus of ureter (principal)
CPT/HCPCS: 74018